=== PATIENT | male | born 1965 | race Caucasian/White ===

== ENCOUNTER 2018-05-27 12:04 | Emergency (ER) | payer MEDICAID ==
[~2018-05-27] VITALS: Ht 172.7 cm; Wt 81.6 kg
[2018-05-27 12:19] VITALS: Ht 172.7 cm; Wt 81.6 kg
[2018-05-27 13:57] LABS: microscopic required? YES; urine erythrocyte 3+ (NEGATIVE)
[2018-05-27 14:38] VITALS: BP 130/74
== END 2018-05-27 14:38 | disposition home or self-care (01) ==
LOC: ED 12:04
PROVIDERS: Emergency Medicine
DX: N39.0 Urinary tract infection, site not specified (principal)
CPT/HCPCS: 82962; 87491; 87591; J0696